=== PATIENT | male | born 1950 | race Caucasian/White ===

== ENCOUNTER 2016-11-26 05:20 | Inpatient (IN) | payer MEDICARE, OTHER ==
[~2016-11-26 05:20] MED LIST: ASPIR 8181 M1 PO; CELEXA20 M2 PO; EDARBYCLOR 40-1 EAC3 PO; TYLENOL PM EX-1 EAC4 PO
[2016-11-27] MEDS ORDERED: NORCO 5-325 TA1 EACH PO (10:56)
[2016-11-27] MEDS ORDERED: CYCLOBENZAPRINE5 M1 PO (10:58)
== END 2016-11-27 12:44 | DRG 520 ==
LOC: SHSC 05:20 → ORE 07:29 → PACU 10:58 → 5EB 11:54
PROVIDERS: ADMIT Orthopaedic Surgery Orthopaedic Surgery of the Spine
PROC: 0ST20ZZ Resection of Lumbar Vertebral Disc, Open Approach (ICD-10-PCS; principal; 2016-11-26)
DX: M48.06 Spinal stenosis, lumbar region (principal); I10 Essential (primary) hypertension; E55.9 Vitamin D deficiency, unspecified
CPT/HCPCS: J0690